=== PATIENT | male | born 1970 | race Caucasian/White ===

== ENCOUNTER 2023-01-28 18:11 | Emergency (ER) | payer OTHER ==
[~2023-01-28] VITALS: Ht 167.6 cm; Wt 93.0 kg
[2023-01-28 18:19] VITALS: BP 169/74; O2SAT 97
[2023-01-28] MEDS ORDERED: ACET-2708 MT (20:09)
[2023-01-28] MEDS ORDERED: FLUT9.9S BOTHNSTRLS (20:09)
[2023-01-28] MEDS ORDERED: BACI3.5O5 EACH EAR (20:09)
[2023-01-28] MEDS ORDERED: IBUP-1525 MT (20:09)
[2023-01-28] MEDS ORDERED: CLAR10 MT (20:09)
[2023-01-28 20:45] VITALS: PULSE 71; RESP 16; TEMP 98.7
== END 2023-01-28 20:45 | disposition home or self-care (01) ==
LOC: ER 18:11
DX: H92.01 Otalgia, right ear (principal); H60.92 Unspecified otitis externa, left ear; J30.9 Allergic rhinitis, unspecified; E11.9 Type 2 diabetes mellitus without complications; Z79.899 Other long term (current) drug therapy
CPT/HCPCS: 99281; 99283